=== PATIENT | female | born 1995 | race African-American/Black ===

== ENCOUNTER 2019-03-31 21:33 | Emergency (ER) | payer OTHER ==
[~2019-03-31] VITALS: Ht 157.5 cm; Wt 72.6 kg
[2019-03-31] MEDS ORDERED: IBUPROFEN 600600 M1 PO (22:12)
[2019-03-31 22:19] VITALS: BP 120/65
== END 2019-03-31 22:39 | disposition home or self-care (01) ==
LOC: ER 21:33
DX: T25.222A Burn of second degree of left foot, initial encounter (principal); X10.2XXA Contact with fats and cooking oils, initial encounter; Y93.G3 Activity, cooking and baking; Y92.090 Kitchen in other non-institutional residence as the place of occurrence of the external cause; Y99.9 Unspecified external cause status

== ENCOUNTER → 2019-04-10 | Outpatient (CLI) | payer OTHER ==
[~2019-04-10] MED LIST: IBUPROFEN 600600 M1 PO
== END ==
LOC: HYPER 09:28
DX: T25.022A Burn of unspecified degree of left foot, initial encounter (principal); T31.0 Burns involving less than 10% of body surface; Z90.49 Acquired absence of other specified parts of digestive tract; X98.2XXA Assault by hot fluids, initial encounter; Y93.G3 Activity, cooking and baking; Y92.89 Other specified places as the place of occurrence of the external cause; Y99.8 Other external cause status